=== PATIENT | male | born 1990 | race Caucasian/White ===

== ENCOUNTER 2016-10-16 05:09 | Observation (INO) | payer SELFPAY ==
[2016-10-16] VITALS (13 sets, daily range): BP systolic 117–135; BP diastolic 55–72; PULSE 65–91; RESP 16–18; TEMP 97.7–99; O2SAT 96–100
[2016-10-16] MEDS ORDERED: DIPHTH/TETANUS/ACEL PERTUSSIS (BOOSTER) 0.5 ML VIAL/PFS IM ONE (05:20)
[2016-10-16] MEDS ORDERED: ETOMIDATE 20 MG/10 ML VIAL ONE (05:24)
[2016-10-16] MEDS ORDERED: SUCCINYLCHOLINE CHLORIDE 200 MG/10 ML VIAL ONE (05:24)
[2016-10-16] MEDS ORDERED: PROPOFOL 1000 MG/100 ML INJ 100 ML ONE ×2 (05:30→06:57)
[2016-10-16 05:39] LABS: I-STAT POTASSIUM 3.9 MMOL/L (3.5-4.9); I-STAT SODIUM 142 MMOL/L (138-146)
[2016-10-16 05:40] LABS: AUTOMATED NEUTROPHIL # 4.6 TH/MM3 (1.8-7.7); BASOPHIL % 0.6 % (0.0-2.0); EOSINOPHIL % 0.5 % (0.0-4.0); HEMATOCRIT 43.2 % (39.0-51.0); HEMO FLAGS DIFF FINAL; LYMPH % 28.6 % (9.0-44.0); LYMPHOCYTE # 2.3 TH/MM3 (1.0-4.8); MEAN CELL VOLUME 88.7 FL (80.0-100.0); MEAN CORPUSCULAR HEMOGLOBIN 29.1 PG (27.0-34.0); MEAN CORPUSCULAR HGB CONC 32.8 % (32.0-36.0); MONO % 12.7 % (0.0-8.0); NEUT % 57.6 % (16.0-70.0); PLATELET COUNT 252 TH/MM3 (150-450); RED BLOOD COUNT 4.87 MIL/MM3 (4.50-5.90)
[2016-10-16 05:49] LABS: PROTHROMBIN TIME - PATIENT 10.5 SEC (9.8-11.6)
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
--- NOTE | 2016-10-16 05:51 | RADRPT ---
EXAM DATE/TIME: 10/16/2016 05:03 [facility] COMPARISON: No previous studies available for comparison. INDICATIONS : Trauma alert, post intubation. MEDICAL HISTORY : None. SURGICAL HISTORY : None. ENCOUNTER: Initial ACUITY: 1 day PAIN SCORE: Non-responsive. LOCATION: Bilateral chest FINDINGS: The lungs are clear without infiltrate, nodule, or mass. There is no appreciable pleural effusion fo r technique. Heart and mediastinum are unremarkable. ET tube is present with tip at the evan. CONCLUSION: No acute cardiopulmonary disease. Jaquan Santacruz MD on October 16, 2016 at 5:49 Board Certified Radiologist. This report was verified electronically.
[2016-10-16] MEDS ORDERED: SODIUM CHLOR 0.9% 1000 ML INJ 1,000 ML IV SCH (06:29)
[2016-10-16] MEDS ORDERED: ACETAMINOPHEN/HYDROcodone 325 MG/5 MG TAB PO PRN (06:30)
[2016-10-16] MEDS ORDERED: CHLORHEXIDINE GLUCONATE 2 % 1 PACK (2 CLOTHS) TOP PRN (06:30)
[2016-10-16] MEDS ORDERED: ENALAPRILAT 1.25 MG/ML VIAL IV PRN (06:30)
[2016-10-16] MEDS ORDERED: SODIUM CHLORIDE 0.9% FLUSH 10 ML FLUSH IV FLUSH PRN (06:30)
[2016-10-16] MEDS ORDERED: ONDANSETRON HCL 4 MG/2 ML VIAL IV PRN (06:30)
[2016-10-16] MEDS ORDERED: MISCELLANEOUS NURSING INFORMATION XX SCH (06:30)
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
[2016-10-16] MEDS ORDERED: DO NOT ADM ANY ANTICOAGULANT DRUGS PRN (07:15)
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
[2016-10-16] MEDS ORDERED: *morphine SULFATE 8 MG/ML PERIprocedure ONLY ONE (07:24)
[2016-10-16] MEDS ORDERED: PROPOFOL 1000 MG/100 ML IV SCH (07:45)
[2016-10-16] MEDS: DOCUSATE SODIUM 100 MG CAP PO SCH ×3 (09:00→20:27)
[2016-10-16] MEDS: MULTIVITAMIN INJ 10 ML, THIAMINE INJ 100 MG, FOLIC ACID INJ 1 MG in SODIUM CHLORID 0.9%... IV SCH (09:00)
[2016-10-16] MEDS: MORPHINE SULFATE 4 MG/ML INJ IV PRN ×5 (09:30→20:23)
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
[2016-10-16] MEDS ORDERED: LACTATED RINGER'S 1000 ML INJ 1,000 ML IV ONE (12:00)
[2016-10-16] MEDS ORDERED: NORMOSOL R INJ 1,000 ML IV ONE (12:00)
[2016-10-16] MEDS ORDERED: PHENYLEPH/NS 1000 MCG/10 ML SYR IV ONE (12:00)
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
[2016-10-16] MEDS: ACETAMINOPHEN/HYDROcodone 325 MG/5 MG TAB PO PRN (19:08)
[2016-10-17] VITALS: BP_SYST 116; BP_SYST 126; BP_DIAS 55; BP_DIAS 71; PULSE 63; PULSE 80; RESP 18; TEMP 97.5; TEMP 98.5; O2SAT 97
[2016-10-17] MEDS: MORPHINE SULFATE 4 MG/ML INJ IV PRN ×3 (00:19→08:23)
[2016-10-17] MEDS: ACETAMINOPHEN/HYDROcodone 325 MG/5 MG TAB PO PRN ×2 (01:43→06:18)
[2016-10-17 04:00] VITALS: BP 120/82; PULSE 60; RESP 18; TEMP 98.3; O2SAT 97
[2016-10-17] MEDS ORDERED: CHLORHEXIDINE GLUCONATE 2 % 1 PACK (2 CLOTHS) TOP SCH (04:00)
[2016-10-17 05:08] LABS: AUTOMATED NEUTROPHIL # 1.6 TH/MM3 (1.8-7.7); BASOPHIL # 0.1 TH/MM3 (0-0.2); BASOPHIL % 1.4 % (0.0-2.0); EOSINOPHIL # 0.2 TH/MM3 (0-0.4); HEMATOCRIT 37.9 % (39.0-51.0); HEMO FLAGS DIFF FINAL; LYMPHOCYTE # 2.6 TH/MM3 (1.0-4.8); MEAN CORPUSCULAR HEMOGLOBIN 28.6 PG (27.0-34.0); MEAN CORPUSCULAR HGB CONC 32.2 % (32.0-36.0); MONO % 17.9 % (0.0-8.0); NEUT % 29.7 % (16.0-70.0); PLATELET COUNT 198 TH/MM3 (150-450); RED BLOOD COUNT 4.26 MIL/MM3 (4.50-5.90); RED CELL DISTRIBUTION WIDTH 13.6 % (11.6-17.2); WHITE BLOOD COUNT 5.4 TH/MM3 (4.0-11.0)
[2016-10-17 05:21] LABS: ALT (GPT) 68 U/L (12-78); ANION GAP 7 MEQ/L (5-15); AST (GOT) 54 U/L (15-37); BICARBONATE 27.3 MEQ/L (21.0-32.0); BLOOD UREA NITROGEN 2 MG/DL (7-18); CHLORIDE 108 MEQ/L (98-107); GLOMERULAR FILTRATION RATE 140 ML/MIN (>89); MAGNESIUM 2.1 MG/DL (1.5-2.5); POTASSIUM 3.6 MEQ/L (3.5-5.1); SODIUM (NA) 142 MEQ/L (136-145)
[2016-10-17 05:23] LABS: ALKALINE PHOSPHATASE 54 U/L (45-117); TOTAL BILIRUBIN ADULT 0.2 MG/DL (0.2-1.0)
[2016-10-17 08:00] VITALS: BP 111/59; PULSE 48; RESP 18; TEMP 97.6; O2SAT 96
[2016-10-17] MEDS: DOCUSATE SODIUM 100 MG CAP PO SCH (08:33)
[2016-10-17] MEDS: MULTIVITAMIN INJ 10 ML, THIAMINE INJ 100 MG, FOLIC ACID INJ 1 MG in SODIUM CHLORID 0.9%... IV SCH (08:33)
[2016-10-17 08:57] VITALS: O2SAT 96
--- NOTE | 2016-10-17 11:00 | RADRPT ---
EXAM DATE/TIME: 10/17/2016 10:34 [facility] COMPARISON: CHEST SINGLE AP, October 16, 2016, 5:03. INDICATIONS : Patient is short of breath and having abdomen pain. MEDICAL HISTORY : None. SURGICAL HISTORY : None. ENCOUNTER: Subsequent ACUITY: 2 days PAIN SCORE: 8/10 LOCATION: Bilateral Abdomen. FINDINGS: A single view of the chest demonstrates the lungs to be symmetrically aerated without evidence of mas s, infiltrate or effusion. The cardiomediastinal contours are unremarkable. Osseous structures are intact. CONCLUSION: No acute disease. Tomy Sheikh MD on October 17, 2016 at 10:57 Board Certified Radiologist. This report was verified electronically.
--- NOTE | 2016-10-17 11:04 | PD.CONS ---
Provisional Diagnosis Admission Date Oct 16, 2016 at 06:32 Moro I. adjustment Disorder. History of Present Illness Service Psychiatry Consult Requested By Primary Care Physician Unknown Past Family Social History Coded Allergies: No Known Allergies (Unverified , 10/16/16) Patient states no know allergies Current Medications Medications (Trade) Dose Ordered Sig/Nohemi Route Start Time Stop Time Status Last Admin (NS Flush) 2 ml UNSCH PRN IV FLUSH 10/16/16 06:30 (Morphine Inj) 2 mg Q3H PRN IV 10/16/16 06:30 10/17/16 08:23 (Pierson 5-325 Mg) 1 tab Q4H PRN PO 10/16/16 06:30 10/17/16 10:25 (Pierson 5-325 Mg) 2 tab Q4H PRN PO 10/16/16 06:30 10/17/16 06:18 (Vasotec Inj) 1.25 mg Q8H PRN IV 10/16/16 06:30 Ondansetron HCl 4 mg 4 mg Q6H PRN IV 10/16/16 06:30 (Mvi-12 Inj/ Thiamine Inj/ Folvite Inj/NS 500 ml Inj) 511.2 ml @ 125 mls/hr Q24H IV 10/16/16 09:00 10/18/16 13:06 10/16/16 09:00 (Colace) 100 mg BID PO 10/16/16 09:00 10/16/16 20:27 Miscellaneous Information 1 Q361D XX 10/16/16 06:30 (Chlorhexidine 2% Cloth) 3 pack Taper DAILY@04 TOP 10/17/16 04:00 10/13/17 03:59 Chlorhexidine Gluconate 3 pack 3 pack UNSCH PRN TOP 10/16/16 06:30 (Diprivan 1000 Mg/100ml Inj) 100 ml @ 0 mls/hr TITRATE IV 10/16/16 07:45 10/16/16 07:54 (Morphine Inj) 4 mg Q2H PRN IV 10/16/16 10:15 10/16/16 17:00 Physical Exam Vital Signs Vital Signs Date Time Temp Pulse Resp B/P Pulse Ox O2 Delivery O2 Flow Rate FiO2 10/17/16 08:57 96 21 10/17/16 08:00 97.6 48 18 111/59 10/16/16 08:18 Nasal Cannula 4 I/O 10/16/16 10/16/16 10/17/16 08:00 16:00 00:00 Intake Total 2000 ml 1387 ml 360 ml Output Total 410 ml 975 ml 1200 ml Balance 1590 ml 412 ml -840 ml Assessment & Plan Assessment & Plan Estimated LOS: Cody Dias MD Oct 17, 2016 11:04
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
== END 2016-10-17 11:42 | disposition left against medical advice (07) ==
LOC: NEPI 05:09 → EDBD 06:32 → NEDA 06:32 → N03B 08:10 → N07B 18:17
PROVIDERS: ADMIT Surgery; ATTEND Surgery
DX: S31.119A Laceration without foreign body of abdominal wall, unspecified quadrant without penetration into peritoneal cavity, initial encounter (principal); S10.91XA Abrasion of unspecified part of neck, initial encounter; F43.20 Adjustment disorder, unspecified; F32.9 Major depressive disorder, single episode, unspecified; F41.9 Anxiety disorder, unspecified; W26.0XXA Contact with knife, initial encounter; Z23 Encounter for immunization; T42.6X2A Poisoning by other antiepileptic and sedative-hypnotic drugs, intentional self-harm, initial encounter
CPT/HCPCS: 20102; 31500; 43753; 49320; 71010; 80053; 80307; 82435; 82565; 82947; 83735; 84100; 84132; 84295; 84520; 85025; 85610; 85730; 86850; 86900; 86901; 86920; 87641; 90471; 90715; 94003; 96361; 96365; 96367; 96374; 96375; 96376; 97161; 99285; 99291; G0378; G8987; G8988; J0330; J2270; J2370; J3010; J3411; J7030; J7040; J7120; G0390

== ENCOUNTER 2016-10-28 03:45 | Emergency (ER) | payer SELFPAY ==
[~2016-10-28] VITALS: Ht 167.6 cm; Wt 68.0 kg
[2016-10-28 03:46] VITALS: BP 140/90; PULSE 84; RESP 16; TEMP 98.8; O2SAT 98
[2016-10-28] MEDS ORDERED: SODIUM CHLOR 0.9% 1000 ML INJ 1,000 ML IV ONE (05:30)
[2016-10-28] MEDS ORDERED: CLINDAMYCIN INJ 600 MG in SODIUM CHLORIDE 0.9% INJ 100 ML IV ONE (05:30)
[2016-10-28] MEDS ORDERED: KETOROLAC TROMETHAMINE 30 MG/ML (IVP) VIAL IV PUSH ONE (05:30)
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
[2016-10-28 06:29] LABS: AUTOMATED NEUTROPHIL # 4.4 TH/MM3 (1.8-7.7); BASOPHIL # 0.1 TH/MM3 (0-0.2); BASOPHIL % 0.9 % (0.0-2.0); EOSINOPHIL # 0.1 TH/MM3 (0-0.4); HEMATOCRIT 39.5 % (39.0-51.0); HEMO FLAGS DIFF FINAL; LYMPH % 36.5 % (9.0-44.0); LYMPHOCYTE # 3.1 TH/MM3 (1.0-4.8); MEAN CELL VOLUME 87.6 FL (80.0-100.0); MEAN CORPUSCULAR HGB CONC 34.2 % (32.0-36.0); MONO % 9.6 % (0.0-8.0); PLATELET COUNT 275 TH/MM3 (150-450); RED CELL DISTRIBUTION WIDTH 14.3 % (11.6-17.2); WHITE BLOOD COUNT 8.5 TH/MM3 (4.0-11.0)
[2016-10-28] MEDS ORDERED: MUPI2%T TOPICAL (06:36)
[2016-10-28] MEDS ORDERED: CLIN150 PO (06:36)
[2016-10-28 06:49] LABS: BICARBONATE 25.3 MEQ/L (21.0-32.0); POTASSIUM 3.4 MEQ/L (3.5-5.1)
[2016-10-28 07:04] VITALS: BP 128/80
== END 2016-10-28 07:26 | disposition home or self-care (01) ==
LOC: NEPE 03:45
DX: T81.31XA Disruption of external operation (surgical) wound, not elsewhere classified, initial encounter (principal); F41.9 Anxiety disorder, unspecified; F32.9 Major depressive disorder, single episode, unspecified; F17.200 Nicotine dependence, unspecified, uncomplicated
CPT/HCPCS: 80048; 85025; 86403; 87070; 87186; 96374; 96375; 99284; J1885; J7030